=== PATIENT | male | born 1955 | race Caucasian/White ===

== ENCOUNTER → 2016-08-28 | Outpatient (CLI) | payer BC | END | disposition home or self-care (01) | LOC: MW.CHUR 13:31 | PROVIDERS: ATTEND Urology | DX: N40.0 Benign prostatic hyperplasia without lower urinary tract symptoms (principal); N52.9 Male erectile dysfunction, unspecified | CPT/HCPCS: 81001 ==

== ENCOUNTER 2024-06-17 06:17 | Emergency (ER) | payer MEDICARE, OTHER ==
[2024-06-17] MEDS ORDERED: Morphine 2 MG/ML SYRINGE IVPUSH PRN (06:28)
[2024-06-17 06:43] LABS: BASOPHILS ABSOLUTE AUTO 0.03 K/uL (0.00-0.20); BASOPHILS PERCENT AUTO 0.3 % (0.0-1.0); EOSINOPHILS ABSOLUTE AUTO 0.22 K/uL (0.00-0.45); HEMATOCRIT 38.7 % (42.0-52.0); HEMOGLOBIN 13.1 g/dL (14.0-18.0); IMMATURE GRAN ABSOLUTE AUTO 0.04 K/uL (0.00-0.05); IMMATURE GRAN PERCENT AUTO 0.4 % (0.0-0.4); LYMPHOCYTES ABSOLUTE AUTO 3.03 K/uL (1.00-4.80); LYMPHOCYTES PERCENT AUTO 27.4 % (24.0-44.0); MEAN CORPUSCULAR HEMOGLOBIN 30.5 pg (28.0-32.0); MEAN CORPUSCULAR HGB CONC 33.9 g/dL (32.0-36.0); MONOCYTES ABSOLUTE AUTO 0.83 K/uL (0.00-0.80); MONOCYTES PERCENT AUTO 7.5 % (0.0-8.0); NEUTROPHILS ABSOLUTE AUTO 6.91 K/uL (1.80-7.70); NEUTROPHILS PERCENT AUTO 62.4 % (41.0-71.0); PLATELET COUNT,PLT 169 K/uL (150-400); WHITE BLOOD CELL COUNT,WBC 11.06 K/uL (3.9-11.3)
[2024-06-17 06:48] LABS: APPEARANCE,URINE CLOUDY; BILIRUBIN,URINE NEGATIVE (NEGATIVE); COLOR,URINE YELLOW; KETONES,URINE NEGATIVE (NEGATIVE); PROTEIN,URINE TRACES mg/dL (NEGATIVE)
[2024-06-17 06:49] LABS: GLUCOSE,URINE 1000 mg/dL (NEGATIVE); LEUKOCYTE ESTERASE,URINE NEGATIVE (NEGATIVE); NITRITE,URINE NEGATIVE (NEGATIVE); OCCULT BLOOD,URINE LARGE (NEGATIVE); UROBILINOGEN,URINE 0.2 EU/dL (<2.0)
[2024-06-17] MEDS: Ondansetron 4 MG/2 ML SDV IVPUSH ONE (06:50)
[2024-06-17] MEDS: Morphine 2 MG/ML SYRINGE IVPUSH ONE (06:53)
[2024-06-17 06:57] LABS: BACTERIA,URINE RARE (NEGATIVE); EPITHELIAL CELLS,URINE RARE (NONE-FEW); RBC,URINE 50-75 (0-2/HPF); SQUAMOUS EPITHELIAL CELLS,UR RARE; WBC,URINE 0-1 (0-5/HPF)
[2024-06-17 06:58] LABS: MUCUS,URINE LIGHT (NONE-MOD)
[2024-06-17 06:59] LABS: INR 0.95 (0.86-1.11)
[2024-06-17 07:05] LABS: A/G RATIO 0.9 (0.9-1.6); ALBUMIN 3.4 g/dL (3.4-5.0); BILIRUBIN TOTAL 0.4 mg/dL (0.2-1.0); CALCIUM 9.1 mg/dL (8.5-10.1); CARBON DIOXIDE,CO2 22.6 mmol/L (21.0-32.0); CREATININE 0.9 mg/dL (0.8-1.3); EST CRCL DRUG DOSING (CG) 90.01 mL/min; POTASSIUM,K 4.4 mmol/L (3.5-5.1); PROTEIN TOTAL,TP 7.1 g/dL (6.4-8.2)
== END 2024-06-17 07:57 | disposition home or self-care (01) ==
LOC: MW.ED 06:17
DX: R33.9 Retention of urine, unspecified (principal); R31.0 Gross hematuria; Z90.79 Acquired absence of other genital organ(s); Z79.899 Other long term (current) drug therapy; Z79.82 Long term (current) use of aspirin; Z79.4 Long term (current) use of insulin
CPT/HCPCS: 36415; 51702; 80053; 81001; 85025; 85610; 96374; 96375; 99283; J2270; J2405